=== PATIENT | female | born 1955 | race African-American/Black ===

== ENCOUNTER → 2018-03-30 | Outpatient (CLI) | payer BC ==
--- NOTE | 2018-03-30 12:00 | RADIOLOGY REPORT (SQ) ---
EXAM DESCRIPTION: VENOUS UNILATERAL LOWER COMPLETED DATE/TIME: 03/30/2018 11:49 am REASON FOR STUDY: RLE PAIN M79.604 PAIN IN RIGHT LEG COMPARISON: None. TECHNIQUE: Dynamic and static veloz scale and color images acquired of the right leg venous system. S elected spectral images acquired with additional compression and augmentation maneuvers. The contrala teral common femoral vein and saphenofemoral junction were also imaged. Images stored on PACS. LIMITATIONS: None. FINDINGS: RIGHT COMMON FEMORAL: Normal phasicity, compression and augmentation. No visualized echogenic material on g ray scale. No defects on color images. FEMORAL: Normal compression and augmentation. No visualized echogenic material on veloz scale. No defe cts on color images. POPLITEAL: Normal compression, augmentation. No visualized echogenic material on veloz scale. No defec ts on color images. POSTERIOR TIBIAL AND PERONEAL VEINS: Normal compression, augmentation. No visualized echogenic materi al on veloz scale. No defects on color images. GSV and SSV: Normal compression, augmentation. No visualized echogenic material on veloz scale. No def ects on color images. ANY DEEP VENOUS INSUFFICIENCY: Not evaluated. ANY EVIDENCE OF POPLITEAL CYST: No. OTHER: No other significant finding. LEFT COMMON FEMORAL VEIN AND SAPHENOFEMORAL JUNCTION: Normal phasicity, compression and augmentation. No visualized echogenic material on veloz scale. No de fects on color images. IMPRESSION: NO EVIDENCE OF DVT OR SVT IN THE RIGHT LEG. TECHNICAL DOCUMENTATION: JOB ID: [id number] [employer]- All Rights Reserved Reading location - IP/workstation name: [email or web address]
== END ==
LOC: SP 09:38
PROVIDERS: ATTEND Physician Assistant
DX: M79.604 Pain in right leg (principal)
CPT/HCPCS: 93971

== ENCOUNTER → 2018-03-31 | Outpatient (CLI) | payer BC ==
--- NOTE | 2018-03-31 10:43 | RADIOLOGY REPORT (SQ) ---
EXAM DESCRIPTION: ANKLE RIGHT COMPLETE COMPLETED DATE/TIME: 03/31/2018 10:13 am REASON FOR STUDY: SKIN LESION L98.9 DISORDER OF THE SKIN AND SUBCUTANEOUS TISSUE, UNSPECIF COMPARISON: None. NUMBER OF VIEWS: Three views. TECHNIQUE: AP, lateral, and oblique radiographic images acquired of the right ankle. LIMITATIONS: None. FINDINGS: MINERALIZATION: Normal. BONES: No acute fracture or dislocation. No worrisome bone lesions. JOINTS: No effusions. SOFT TISSUES: Diffuse soft tissue swelling. No foreign body. OTHER: No other significant finding. IMPRESSION: Peripheral inflammation or edema. TECHNICAL DOCUMENTATION: JOB ID: [id number] [employer]- All Rights Reserved Reading location - IP/workstation name: [email or web address]
== END ==
LOC: OD 09:52
PROVIDERS: ATTEND Family Medicine
DX: L98.9 Disorder of the skin and subcutaneous tissue, unspecified (principal)

== ENCOUNTER 2018-04-24 22:22 | Emergency (ER) | payer BC ==
[2018-04-25 00:07] LABS: ABSOLUTE EOSINOPHILS # (AUTO) 0.1 10^3/uL (0.0-0.6); ABSOLUTE LYMPHOCYTES (AUTO) 1.3 10^3/uL (0.5-4.7); ABSOLUTE MONOCYTES (AUTO) 0.9 10^3/uL (0.1-1.4); ABSOLUTE NEUT (AUTO) 5.7 10^3/uL (1.7-8.2); BASOPHILS % (AUTO) 0.5 % (0-2); EOSINOPHILS % (AUTO) 1.4 % (0-6); HEMATOCRIT 32.9 % (36.0-47.0); HEMOGLOBIN 10.6 g/dL (12.0-15.5); LYMPHOCYTES % (AUTO) 16.1 % (13-45); MEAN CORPUSCULAR HEMOGLOBIN 26.1 pg (27.0-33.4); MEAN CORPUSCULAR HGB CONC 32.1 g/dL (32.0-36.0); MEAN CORPUSCULAR VOLUME 81 fl (80-97); MONOCYTES % (AUTO) 11.4 % (3-13); PLATELET COUNT 147 10^3/uL (150-450); RED BLOOD COUNT 4.05 10^6/uL (3.72-5.28); RED CELL DISTRIBUTION WIDTH 15.5 % (11.5-14.0); SEGMENTED NEUTROPHILS % (AUTO) 70.6 % (42-78); TOTAL CELLS COUNTED % (AUTO) 100 %; WHITE BLOOD COUNT 8.1 10^3/uL (4.0-10.5)
[2018-04-25 00:39] LABS: APPEARANCE,URINE SLIGHTLY-CLOUDY; BILIRUBIN,URINE NEGATIVE (NEGATIVE); COLOR,URINE YELLOW; GLUCOSE, URINE NEGATIVE (NEGATIVE); KETONES,URINE NEGATIVE (NEGATIVE); LEUKOCYTE ESTERASE,URINE MODERATE (NEGATIVE); NITRITE,URINE NEGATIVE (NEGATIVE); PROTEIN,URINE NEGATIVE (NEGATIVE); URINE SPECIFIC GRAVITY 1.015; UROBILINOGEN,URINE NEGATIVE mg/dL (<2.0)
[2018-04-25 00:44] LABS: ALANINE AMINOTRANSFERASE 21 U/L (9-52); ALBUMIN 4.2 g/dL (3.5-5.0); ALKALINE PHOSPHATASE 93 U/L (38-126); ANION GAP 13 (5-19); ASPARTATE AMINO TRANSFERASE 23 U/L (14-36); BILIRUBIN,DIRECT 0.3 mg/dL (0.0-0.4); BILIRUBIN,TOTAL 0.4 mg/dL (0.2-1.3); BLOOD UREA NITROGEN 29 mg/dL (7-20); CALCIUM 9.7 mg/dL (8.4-10.2); CARBON DIOXIDE 23 mmol/L (22-30); CHLORIDE 106 mmol/L (98-107); GLUCOSE 104 mg/dL (75-110); LIPASE 127.4 U/L (23-300); POTASSIUM 4.4 mmol/L (3.6-5.0); SODIUM 142.1 mmol/L (137-145); TOTAL PROTEIN 7.6 g/dL (6.3-8.2)
[2018-04-25] MEDS ORDERED: LIDOCAINE 2% VISCOUS SOLN 20 ML UDCUP PO ONE (00:51)
[2018-04-25] MEDS ORDERED: METOCLOPRAMIDE HCL ORAL SOLN 10 MG/10 ML UDCUP PO ONE (00:51)
[2018-04-25] MEDS ORDERED: MAG HYDROX/AL HYDROX/SIMETH SUSP 30 ML UDCUP PO ONE (00:51)
[2018-04-25] MEDS ORDERED: FAMOTIDINE 20 MG TABLET PO ONE (00:51)
--- NOTE | 2018-04-25 00:52 | ER Document Report ---
ED General - General Chief Complaint: Abdominal Pain >50 Stated Complaint: ABDOMINAL PAIN Time Seen by Provider: 04/24/18 23:37 Notes: Patient is a 62-year-old female with a past medical history of gastric bypass surgery, prior appendectomy, hypertension, obesity, who presents with approximately 5-6 hours of epigastric and right upper quadrant abdominal pain with associated nausea but no vomiting. She describes the pain as a stabbing, aching, constant pain. She also admits that she has not had a bowel movement in over 1 week as she does take chronic narcotics. Denies a history of similar pain in the past. States the pain is worsened by attempts at eating. Nothing improves the pain. She has not contacted her general doctor regarding today's concerns. She denies fever or constitutional symptoms. TRAVEL OUTSIDE OF THE [place] IN LAST 30 DAYS: No - Related Data Allergies/Adverse Reactions: NSAIDS (Non-Steroidal Anti-Inflamma [Nsaids] Allergy (Intermediate, Verified 05/09 23:25) povidone-iodine [From Betadine] Allergy (Unknown, Verified 09/06/10 23:23) propoxyphene HCl [From Darvon] Allergy (Unknown, Verified 09/06/10 23:22) Soap [From Betadine] Allergy (Unknown, Verified 09/06/10 23:23) Past Medical History - General Information source: Patient - Social History Smoking Status: Never Smoker Frequency of alcohol use: None Drug Abuse: None Lives with: Spouse/Significant other Family History: Reviewed & Not Pertinent Review of Systems - Review of Systems Notes: Constitutional: Negative for fever. HENT: Negative for sore throat. Eyes: Negative for visual changes. Cardiovascular: Negative for chest pain. Respiratory: Negative for shortness of breath. Gastrointestinal: Positive for abdominal pain and nausea Genitourinary: Negative for dysuria. Musculoskeletal: Negative for back pain. Skin: Negative for rash. Neurological: Negative for headaches, weakness or numbness. 10 point ROS negative except as marked above and in HPI. Physical Exam - Vital signs Vitals: Temp Pulse Resp BP Pulse Ox 98.2 F 51 L 20 125/66 100 04/24/18 22:45 04/24/18 22:45 04/24/18 22:45 04/24/18 22:45 04/24/18 22:45 Interpretation: Bradycardic Notes: PHYSICAL EXAMINATION: GENERAL: Appears moderately uncomfortable but in no acute distress HEAD: Atraumatic, normocephalic. EYES: Pupils equal round and reactive to light, extraocular movements intact, sclera anicteric, conjunctiva are normal. ENT: nares patent, oropharynx clear without exudates. Moderately dry mucous membranes. NECK: Normal range of motion, supple without lymphadenopathy LUNGS: Breath sounds clear to auscultation bilaterally and equal. No wheezes rales or rhonchi. HEART: Regular rate and rhythm without murmurs ABDOMEN: Soft, focal tenderness the right upper quadrant epigastrium but no other localized areas of abdominal tenderness, normoactive bowel sounds. No guarding, no rebound. No masses appreciated. EXTREMITIES: Normal range of motion, no pitting or edema. No cyanosis. NEUROLOGICAL: No focal neurological deficits. Moves all extremities spontaneously and on command. PSYCH: Normal mood, normal affect. SKIN: Warm, Dry, normal turgor, no rashes or lesions noted. Course - Re-evaluation Re-evalutation: 04/25/18 00:52 Patient presents with epigastric abdominal pain with associated reflux symptoms most consistent with likely gastritis. Patient has no focal abdominal tenderness on examination. Right upper quadrant ultrasound does not demonstrate any evidence of acute cholecystitis or cholelithiasis. Lipase is normal. No LFT changes. Based on history and exam, I do not suspect ACS, pulmonary embolus, SBO, mesenteric ischemia, acute pancreatitis, biliary pathology, or an abdominal aortic dissection. Patient has had improvement of symptoms here with a GI cocktail. At this time will discharge with return precautions and follow-up recommendations. Verbal discharge instructions given a the bedside and opportunity for questions given. Medication warnings reviewed. Patient is in agreement with this plan and has verbalized understanding of return precautions and the need for primary care follow-up in the next 24-72 hours. - Vital Signs Vital signs: Temp Pulse Resp BP Pulse Ox 98.2 F 51 L 20 125/66 100 04/24/18 22:45 04/24/18 22:45 04/24/18 22:45 04/24/18 22:45 04/24/18 22:45 - Laboratory Result Diagrams: 04/24/18 23:55 04/24/18 23:55 Laboratory results interpreted by me: 04/24/18 04/24/18 04/25/18 23:55 23:55 00:09 Hgb 10.6 L Hct 32.9 L MCH 26.1 L RDW 15.5 H Plt Count 147 L BUN 29 H Creatinine 1.26 H Est GFR ( Amer) 52 L Est GFR (Non-Af Amer) 43 L Ur Leukocyte Esterase MODERATE H - Diagnostic Test Radiology reviewed: Image reviewed, Reports reviewed Radiology results interpreted by me: 04/25/18 02:14 Abdominal two-view: No evidence of obstruction or perforation, significant colonic stool burden Discharge - Discharge Clinical Impression: Epigastric abdominal pain, Nausea Constipation Qualifiers: Constipation type: unspecified constipation type Qualified Code(s): K59.00 - Constipation, unspecified Condition: Good Disposition: HOME, SELF-CARE Additional Instructions: Your symptoms appear to be most consistent with stomach or upper intestinal irritation. Please begin taking famotidine 40 mg in the morning and 40 mg at night. This medicine can be purchased directly [id number]. You may also take medicine such as Pepto-Bismol or Tums to assist with your pain. Please return to emergency department immediately if you have worsening of your pain, shortness of breath, vomiting, become unable to exert yourself due to pain or difficulty breathing, you pass out, or have any pain that radiates into your arms, jaw, or back. Please also return if you have any additional symptoms that are concerning to you. As we have discussed, the most important thing is lifestyle changes. You need to avoid smoking, sodas, tea, coffee, alcohol, spicy foods, and acidic foods such as citrus fruits, tomato based products, berries, and most fruit juices. For your constipation take 1 capful of MiraLAX in the morning and 1 capful at night. Prescriptions: Famotidine 40 mg PO BID #60 tablet Sucralfate [Carafate 1 gm Tablet] 1 gm PO ACHS #120 tablet Referrals: ALDO RANGEL MD [Primary Care Provider] - Follow up tomorrow
--- NOTE | 2018-04-25 01:22 | RADIOLOGY REPORT (SQ) ---
EXAM DESCRIPTION: XR ABDOMEN 2 VIEWS SUPINE ERECT COMPLETED DATE/TME: 04/25/2018 00:51 CLINICAL HISTORY: 62 years, Female, abdominal pain, no bm COMPARISON: None. NUMBER OF VIEWS: Two TECHNIQUE: Supine and upright images of the abdomen LIMITATIONS: None. FINDINGS: There is no intraperitoneal free air. There are no dilated loops of small bowel. There are no abnormal calcifications. There is no acute fracture. IMPRESSION: Nonobstructing bowel gas pattern 2010 [employer]- All Rights Reserved
--- NOTE | 2018-04-25 02:46 | RADIOLOGY REPORT (SQ) ---
Ultrasound right upper quadrant on 04/25/2018 at 1:54 AM Clinical indications: Right upper quadrant pain COMPARISON: None FINDINGS: Multiple sonographic images are obtained throughout the right upper quadrant, both transverse and sagittal images are obtained. Visualized aorta is unremarkable. Limited visualized pancreas is unremarkable. Visualized liver is homogeneous without focal lesion or evidence of intrahepatic biliary ductal dilatation. Visualized hepatic vasculature is patent with a normal directional flow. There are small echogenic foci with posterior shadowing in the gallbladder consistent with small gallstones. Minimal sludge is noted in the gallbladder. No gallbladder wall thickening or pericholecystic fluid is noted. Right kidney shows no hydronephrosis. Common duct measures 2 mm which is within normal limits mitigating against obstruction of the biliary tree. IMPRESSION: Cholelithiasis, otherwise unremarkable.
[2018-04-25 03:28] VITALS: BP 140/82
== END 2018-04-25 03:32 | disposition home or self-care (01) ==
LOC: ER 22:22
DX: K59.00 Constipation, unspecified (principal); R10.13 Epigastric pain; R10.11 Right upper quadrant pain; I10 Essential (primary) hypertension; R11.0 Nausea; Z79.899 Other long term (current) drug therapy; Z98.84 Bariatric surgery status; Z90.49 Acquired absence of other specified parts of digestive tract; Z88.8 Allergy status to other drugs, medicaments and biological substances; Z88.3 Allergy status to other anti-infective agents; Z88.5 Allergy status to narcotic agent
CPT/HCPCS: 99285; 36415; 83690; 85025; 80053; 81001; 74019; 76705; J3490

== ENCOUNTER → 2018-05-06 | Outpatient (CLI) | payer BC ==
--- NOTE | 2018-05-06 16:55 | RADIOLOGY REPORT (SQ) ---
EXAM DESCRIPTION: U/S EXTREMITY NONVASCULAR COMP COMPLETED DATE/TIME: 05/06/2018 4:19 pm REASON FOR STUDY: R22.41 LOCALIZED SWELLING, MASS AND LUMP, RIGHT LOWER LIMB R22.41 LOCALIZED SWELL ING, MASS AND LUMP, RIGHT LOWER LIMB COMPARISON: None. TECHNIQUE: Dynamic and static grayscale images acquired of the right ankle soft tissues and recorded on PACS. Additional selected color Doppler and spectral images recorded. SITE OF CONCERN: Right ankle LIMITATIONS: None. FINDINGS: SKIN AND SUBCUTANEOUS TISSUES: Diffuse edema is present throughout the skin and subcutaneo us fat of the right ankle. The most pronounced interstitial tissue fluid is seen medially in the ank le. No well-circumscribed fluid pocket worrisome for abscess. DEEP SOFT TISSUES/MUSCLES: No masses. No deep tissue fluid collections. No gross ankle joint effusi on. OTHER: No other significant finding. IMPRESSION: Diffuse skin and subcutaneous edema right ankle without well-circumscribed abscess TECHNICAL DOCUMENTATION: JOB ID: [id number] [employer]- All Rights Reserved Reading location - IP/workstation name: [id number]
== END ==
LOC: RAD 16:42
PROVIDERS: ATTEND Podiatrist Foot & Ankle Surgery
DX: R22.41 Localized swelling, mass and lump, right lower limb (principal)
CPT/HCPCS: 76881

== ENCOUNTER → 2019-01-11 | Outpatient (CLI) | payer BC ==
--- NOTE | 2019-01-12 07:22 | XCELERA REPORT ---
[address] [address] Lower Extremity Arterial Evaluation Name: PARAMJIT ALCANTARA Age: 63 yrs Gender: Female : 1955 Patient Status: Outpatient Patient Location: [facility] Study Date: 01/11/2019 01:19 PM Procedure: A color flow and duplex scan of the lower extremity arteries was performed bilaterally with velocity and waveform anaylsis. Ankle brachial indicies performed. Reason For Study: PVD Ordering Physician: SHANNON OCHOA Performed By: Torito Thompson Measurements and Calculations Right Left THERMOSPRAY OPERATOR PSV 161.1 141.4 cm/sec Prox PFA PSV -95.5 -92.6 cm/sec Prox SFA PSV -137.0 110.6 cm/sec Mid SFA PSV -116.6 -122.6cm/sec Dist SFA PSV -77.6 -79.1 cm/sec Prox Pop A PSV 69.8 69.4 cm/sec Dist ELIGIO PSV 108.6 103.7 cm/sec Dist GRANITE [employer]IP TERRAZZO FINISHER PSV -79.0 82.0 cm/sec Chris Pedis PSV 113.0 81.6 cm/sec Right Side Arterial Evaluation Normal velocity and triphasic waveforms noted from the Common Femoral artery to the infrageniculate vessels . Ankle Brachial index 1.18. Left Side Arterial Evaluation Normal velocity and triphasic waveforms noted from the Common Femoral artery to the infrageniculate vessels . Ankle Brachial index 1.13. Interpretation Summary No hemodynamically significant lesions in the bilateral lower extremities, on duplex imaging, at rest. TRE's are normal, in concordance with duplex, indicating no significant arterial compromise. : SHANNON OCHOA > Roddy Szymanski
== END ==
LOC: SP 12:46
PROVIDERS: ATTEND Podiatrist Foot Surgery
DX: I73.9 Peripheral vascular disease, unspecified (principal)
CPT/HCPCS: 93925

== ENCOUNTER → 2019-03-23 | Outpatient (CLI) | payer BC ==
--- NOTE | 2019-03-23 12:47 | RADIOLOGY REPORT (SQ) ---
EXAM DESCRIPTION: ACUTE ABDOMEN SERIES COMPLETED DATE/TIME: 03/23/2019 11:59 am REASON FOR STUDY: LOWER ABD PAIN (R10.30) R10.30 LOWER ABDOMINAL PAIN, UNSPECIFIED COMPARISON: 04/25/2018 NUMBER OF VIEWS: Three views. TECHNIQUE: Frontal chest, supine abdomen and upright/decubitus abdomen radiographic images acquired. LIMITATIONS: None. FINDINGS: CHEST: Lungs clear of infiltrates. FREE AIR: None. No abnormal gas collections. BOWEL GAS PATTERN: Nonobstructive pattern. No dilated loops or air fluid levels. CALCIFICATIONS: No suspicious calcifications. HARDWARE: 3 circular metallic densities overlie left upper quadrant, unchanged and possibly tacks fro m prior hernia repair. SOFT TISSUES: No gross mass or suggestion of organomegaly. Scattered pelvic phleboliths. BONES: No acute fracture. No worrisome bone lesions. OTHER: No other significant finding. IMPRESSION: No evidence of intestinal obstruction or other acute intra-abdominal/pelvic process. TECHNICAL DOCUMENTATION: JOB ID: [id number] [employer]- All Rights Reserved Reading location - IP/workstation name: [email or web address]
== END ==
LOC: RAD 11:29
PROVIDERS: ATTEND Physician Assistant
DX: R10.30 Lower abdominal pain, unspecified (principal)
CPT/HCPCS: 74022

== ENCOUNTER 2019-03-30 06:29 | Day surgery (SDC) | payer BC ==
[~2019-03-30 06:29] MED LIST: CEFAZOLIN 1 GM/D5W RTU 1 GM/50 ML RTUPB IV PRN; LACTATED RINGERS 1000 ML IV PRN; LIDOCAINE 0.5% INJ-PF (5 MG/ML) 50 ML SDV SUBCUT PRN
[2019-03-30] MEDS ORDERED: MIDAZOLAM 2 MG/2 ML INJ ONE (06:43)
[2019-03-30] MEDS ORDERED: LIDOCAINE 2% INJ (20 MG/ML) 20 ML MDV ONE ×2 (06:44→07:09)
[2019-03-30] MEDS ORDERED: MORPHINE SULFATE 10 MG/ML INJ ONE (06:44)
[2019-03-30] MEDS ORDERED: PROPOFOL INJ 200 MG/20 ML VIAL IV ONE (06:44)
[2019-03-30] MEDS ORDERED: BUPIVACAINE HCL 0.5 % INJ/PF 30 ML SDV ONE ×2 (06:44→07:09)
[2019-03-30] MEDS ORDERED: BALANCED SALT IRRIG SOLN COMB2 15 ML BOTTLE ONE (07:07)
[2019-03-30] MEDS ORDERED: ONDANSETRON HCL INJ/PF 4 MG/2 ML SDV ONE (07:26)
[2019-03-30] MEDS ORDERED: DEXAMETHASONE SOD PHOSPHATE INJ 4 MG/1 ML VIAL ONE (07:27)
[2019-03-30] MEDS ORDERED: FENTANYL CITRATE INJ/PF 100 MCG/2 ML AMPUL ONE (07:27)
[2019-03-30] MEDS ORDERED: ACETAMINOPHEN 1,000 MG/100 ML RTUPB IV ONE (07:33)
[2019-03-30] MEDS ORDERED: DEXMEDETOMIDINE INJ 80 MCG/20 ML VIAL IV ONE (07:33)
[2019-03-30] MEDS: NORMAL SALINE INJ/PF 0.9% 10 ML SDV ONE ×2 (08:40→09:20)
[2019-03-30] MEDS: POLYMYXIN B SULFATE INJ 500000 UNIT VIAL ONE ×2 (08:40→09:20)
[2019-03-30] MEDS: BACITRACIN INJ 50,000 UNIT VIAL ONE ×2 (08:40→09:20)
[2019-03-30] MEDS: BUPIVACAINE INJ/PF LIPOSOME/PF 266 MG/20 ML SDV ONE ×2 (09:36→09:55)
[2019-03-30] MEDS ORDERED: PHENYLEPHRINE HCL INJ/PF 10 MG/1 ML SDV ONE (10:38)
--- NOTE | 2019-03-30 10:58 | Operative Report ---
Operative Report DATE OF SURGERY: 03/30/19 PREOPERATIVE DIAGNOSIS: Hallux abductovalgus right foot. POSTOPERATIVE DIAGNOSIS: Same OPERATION: Kirit bunionectomy with internal fixation right foot SURGEON: SHANNON RICHARDSON ULTRASONIC CLEANER: ANAY HURLEY ANESTHESIA: GA PROCEDURE: Following induction of general anesthesia the right foot was locally anesthetized utilizing a Ashley block. The right foot and leg were prepped and draped in the usual sterile manner, pneumatic tourniquet was placed around the ankle and inflated to 250 mmHg after exsanguination of the limb via Esmarch bandage. The following surgical procedure was then performed Kirit bunionectomy with internal fixation. Attention was directed to the dorsal aspect of the first metatarsal phalangeal joint of the right foot where an approximately 5 cm dorsal linear incision was made. The incision was deepened via sharp dissection and all bleeders were clamped and bovied as necessary for the purposes of hemostasis. A capsular incision was made in the same manner as the original skin incision and was made medial to the extensor hallucis longus tendon. The capsule was reflected medially and laterally from the bone thus bringing into view the hypertrophied medial eminence of the first metatarsal head. The hypertrophied medial eminence of the first metatarsal head was osteotomized parallel to the long axis of the bone utilizing a [employer] sagittal saw. The cartilage of the first metatarsal phalangeal joint was inspected and it was noted that it was normal in appearance except for a small erosion at the plantar medial aspect of the first metatarsal head. Attention was then directed to the lateral aspect of the first metatarsal and a transfer adductor tenotomy was performed. The fibular sesamoid was then removed via comp via sharp dissection. The flexor hallucis longus tendon was identified and was noted to be intact. Utilizing a [employer] elevator the tibial sesamoid was freed from its attachments to the plantar aspect of the head of the first metatarsal. An Kirit osteotomy was then performed in the proximal phalanx of the hallux. This was done utilizing a [employer] sagittal saw with the apex being left medial and the base being lateral. The resulting wedge of bone was removed and the osteotomy was then feathered until it closed down. The osteotomy was then fixated utilizing a 20 mm 2.3 cannulated screw with the screw being oriented from proximal medial to distal lateral. An x-ray was taken and it was noted that the osteotomy was closed on itself and that the screw was in e xcellent position and the first metatarsophalangeal joint was now in a more anatomically correct position. The medial aspect of the first metatarsal was then rasped smooth utilizing a [employer] crosscut rasp. Surgical site was then flushed with copious amounts of an antibacterial saline solution. Bone wax was then applied to the medial aspect of the first metatarsal head. The capsule was then coaptated and maintained utilizing simple interrupted sutures of 3-0 Vicryl. The extensor hallucis longus tendon was then lengthened utilizing a Z- plasty tenotomy and was then sutured utilizing a running suture of the 3-0 Fiber[employer]. The subcutaneous tissue was then coaptated and maintained utilizing simple interrupted sutures of 4-0 Vicryl. The incision was then injected with 20 mL of Exparel subcutaneously. Skin was then coaptated and maintained utilizing horizontal mattress sutures of 5-0 nylon. A dry sterile dressing was then applied consisting of Jose Rafael silk, 4 x 4's, conform, Kerlix, and Coban. The pneumatic tourniquet was released and it was noted that all digits were warm and viable and the patient was transferred to the recovery room.
--- NOTE | 2019-03-30 12:54 | RADIOLOGY REPORT (SQ) ---
EXAM DESCRIPTION: FOOT RIGHT 2 VIEWS; NO CHG FLUORO COMPLETED DATE/TIME: 03/30/2019 12:40 pm REASON FOR STUDY: RIGHT BUNIONECTOMY M20.11 HALLUX VALGUS (ACQUIRED), RIGHT FOOT COMPARISON: None. FLUOROSCOPY TIME: 11 seconds Spot images saved to PACS. TECHNIQUE: Intra-operative images acquired during surgical procedure to evaluate progress. NUMBER OF IMAGES: 6 LIMITATIONS: None. FINDINGS: Fluoroscopy was provided for intraoperative procedure. Please refer to the operative repo rt further discussion. IMPRESSION: IMAGE(S) OBTAINED DURING PROCEDURE. COMMENT: Quality ID [id number]: Final reports for procedures using fluoroscopy that document radiation exp osure indices, or exposure time and number of fluorographic images (if radiation exposure indices are not available) Please consult full operative report of the attending physician for description of the procedure. TECHNICAL DOCUMENTATION: JOB ID: [id number] [employer]- All Rights Reserved Reading location - IP/workstation name: [email or web address]
--- NOTE | 2019-03-30 12:54 | RADIOLOGY REPORT (SQ) ---
EXAM DESCRIPTION: FOOT RIGHT 2 VIEWS; NO CHG FLUORO COMPLETED DATE/TIME: 03/30/2019 12:40 pm REASON FOR STUDY: RIGHT BUNIONECTOMY M20.11 HALLUX VALGUS (ACQUIRED), RIGHT FOOT COMPARISON: None. FLUOROSCOPY TIME: 11 seconds Spot images saved to PACS. TECHNIQUE: Intra-operative images acquired during surgical procedure to evaluate progress. NUMBER OF IMAGES: 6 LIMITATIONS: None. FINDINGS: Fluoroscopy was provided for intraoperative procedure. Please refer to the operative repo rt further discussion. IMPRESSION: IMAGE(S) OBTAINED DURING PROCEDURE. COMMENT: Quality ID [id number]: Final reports for procedures using fluoroscopy that document radiation exp osure indices, or exposure time and number of fluorographic images (if radiation exposure indices are not available) Please consult full operative report of the attending physician for description of the procedure. TECHNICAL DOCUMENTATION: JOB ID: [id number] [employer]- All Rights Reserved Reading location - IP/workstation name: [email or web address]
--- NOTE | 2019-03-30 12:56 | PDOC DISCHARGE SUMMARY ---
Discharge Summary-[facility] Discharge Summary: Date of admission: March 30, 2019 Date of discharge: March 30, 2019 Surgical procedure: [place] bunionectomy with internal fixation right foot. Postoperative diagnosis: Hallux abductovalgus right foot. Surgeon: Nelly Chery D.P.M. Scraper Burrer [place] Loyola D.P.M. The patient was admitted to [facility] with a chief complaint of a painful bunion on her right foot. She had undergone conservative therapy without any change in her symptoms and she wanted to have the problem surgically corrected. She underwent the above surgical procedure without any complications and was discharged with a surgical shoe, an ice pack, postoperative instructions including no weightbearing on the right foot, and postoperative prescriptions consisting of cephalexin 500 mg #4, Percocet 53 25 #20, and Phenergan 25 mg #10. Patient was given a follow-up appointment in the doctor's office in 1 week. Patient was then discharged.
== END 2019-03-30 11:45 | disposition home or self-care (01) ==
LOC: SC 06:29
PROVIDERS: ATTEND Podiatrist Foot Surgery
DX: M20.11 Hallux valgus (acquired), right foot (principal); I10 Essential (primary) hypertension; I49.9 Cardiac arrhythmia, unspecified; G47.30 Sleep apnea, unspecified; Z79.899 Other long term (current) drug therapy
CPT/HCPCS: 28298; 73620; 01480; C1769; C1713; J2250; J3490 ×7; J0690; J1100; J3010; J2270; J2370; J2405; J2704; J0131; C9290

== ENCOUNTER → 2019-04-20 | Outpatient (CLI) | payer BC ==
--- NOTE | 2019-04-20 11:44 | RADIOLOGY REPORT (SQ) ---
EXAM DESCRIPTION: KUB/ABDOMEN (SINGLE VIEW) COMPLETED DATE/TIME: 04/20/2019 11:10 am REASON FOR STUDY: (R10.9)UNSPECIFIED ABDOMINAL PAIN R10.9 UNSPECIFIED ABDOMINAL PAIN COMPARISON: 03/23/2019 NUMBER OF VIEWS: One view. TECHNIQUE: Supine radiographic image of the abdomen acquired. LIMITATIONS: None. FINDINGS: BOWEL GAS PATTERN: Normal bowel gas pattern. No dilated loops. CALCIFICATIONS: Stable calcifications overlying the left iliac crest and pelvis. SOFT TISSUES: No gross mass or suggestion of organomegaly. HARDWARE: Small spring like structures seen in the left mid abdomen. These have been present dating back to 2018. BONES: No acute fracture. No worrisome bone lesions. OTHER: No other significant finding. IMPRESSION: NO RADIOGRAPHIC EVIDENCE FOR ACUTE ABDOMINAL DISEASE. TECHNICAL DOCUMENTATION: JOB ID: [id number] [employer]- All Rights Reserved Reading location - IP/workstation name: [email or web address]
== END ==
LOC: RAD 10:49
PROVIDERS: ATTEND Physician Assistant
DX: K59.00 Constipation, unspecified (principal); R10.84 Generalized abdominal pain; R11.0 Nausea; I49.9 Cardiac arrhythmia, unspecified
CPT/HCPCS: 74018